=== PATIENT | male | born 1935 | race Caucasian/White ===

== ENCOUNTER 2020-06-16 14:17 | Outpatient (CLI) | payer MEDICARE | END 2020-06-16 14:18 | disposition home or self-care (01) | LOC: BICMRI 14:17 | PROVIDERS: ATTEND Family Medicine | DX: M54.5 Low back pain (principal); M25.551 Pain in right hip; S76.011A Strain of muscle, fascia and tendon of right hip, initial encounter; M47.816 Spondylosis without myelopathy or radiculopathy, lumbar region; M70.71 Other bursitis of hip, right hip; M16.11 Unilateral primary osteoarthritis, right hip; M70.61 Trochanteric bursitis, right hip; M24.851 Other specific joint derangements of right hip, not elsewhere classified; N40.0 Benign prostatic hyperplasia without lower urinary tract symptoms; K57.30 Diverticulosis of large intestine without perforation or abscess without bleeding | CPT/HCPCS: 72148 ==